=== PATIENT | male | born 1940 | race Caucasian/White ===

== ENCOUNTER 2022-08-21 16:47 | Inpatient (IN) ==
[2022-08-21] MEDS ORDERED: SODIUM CHLORIDE 0.9% 500 ML IV ONE ×2 (17:12→20:16)
[2022-08-21 17:43] LABS: Hematocrit (blood only) 35.6 % (40.1-51.0); Hemoglobin 11.5 g/dl (14.0-18.0); Mean Corpuscular Hemoglobin 30.2 pg (25.0-34.0); Mean Corpuscular Hgb Conc 32.3 g/dL (32.0-36.0); Mean Corpuscular Volume 93.4 fL (80.0-100.0); Mean Platelet Volume 10.2 fL (9.4-12.4); Platelet Count 311 K/uL (130-400); RDW Coefficient of Variation 14.6 % (11.5-14.5); RDW Standard Deviation 50.3 fL (36.4-46.3); Red Blood Count 3.81 M/uL (4.63-6.08); White Blood Count 18.29 K/ul (4.8-10.8)
--- NOTE | 2022-08-21 17:45 | Emergency Department Note ---
Impression & Plan Severe sepsis, Acute pyelonephritis, Gross hematuria, Bilateral hydronephrosis, Acute renal insufficiency, Increased anion gap metabolic acidosis, Elevated lactic acid level ED Provider Note NAME: JUAN JOSE IBARRA AGE: 81 SEX: M ARRIVES VIA: Ambulance INFORMANT: Patient ED PROVIDER(S): Jose Forbes MD CHIEF COMPLAINT: Blood in urine PLAN: Disposition: Admit MEDICAL DECISION MAKING: The patient is a pleasant 81-year-old gentleman with a past medical history of CAD s/p CABG x 4 (2006) with history of MO with new ICM with EF of 45% in May in [place] not amenable to intervention on aspirin and Plavix, history of kidney stone with left ureteral stent placement in June with subsequent removal who presents to the emergency department for evaluation of urinary urgency and concern for retention with development of gross bloody urine last night. He reports he contacted his urologist office and was reassured it was anticipated that the bleeding would eventually subside. The patient reports he has pain in his lower abdomen associate with urgency. He reports he has not urinated since several hours ago. He reports he will feel the need to urinate and nothing will come out and then when he went to sleep he noticed he had saturated pads repeatedly. He denies any fevers, chills, cough congestion, GI symptoms. On arrival patient is no distress, afebrile with blood pressure 220/120s and heart in the 100s in the setting of his discomfort. Temperature is 37.7. The patient has mild suprapubic discomfort without discrete tenderness. There is no significant fullness. Bedside bladder scan demonstrated only 300 cc. WBC 18.2K with left shift. Hemoglobin 11.5 down from 13.8 last month. Chemistry with anion gap metabolic acidosis with anion gap of 18 and bicarbonate of 19. Creatinine 1.7 increased from recent. Lactic acid 5.1 improving to 3.1 following IV fluid hydration which was given cautiously in setting of renal failure and history of CHF. Patient has been ordered for 1 L normal saline bolus and second liter at 125 cc/h. Patient was hemodynamically stable and so 30 cc/kg fluids deferred. Procalcitonin was nonsignificant elevated. Covid-19 PCR negative. Influenza and RSV PCR negative. Given the patient's leukocytosis and acute renal insufficiency CT and pelvis was performed for further evaluation and demonstrates bilateral perinephric edema with moderate left and mild right hydroureter and nephrosis secondary to 99.1 cm blood clot within the urinary bladder lumen. No obstructing calculi are noted. Patient was initially treated empirically with ceftriaxone however given CT findings which given the patient's low-grade temperature and leukocytosis were concerning for superimposed infection and so treatment was broadened with Zosyn and daptomycin. Patient was additionally ordered for three-way catheter and CBI to help relieve intermittent bladder outlet obstruction and help dissolve/clear large bladder clot. The patient was in agreement with this plan and to admission. Case d/w [facility] u[facility]. Agrees with placement of 3 way catheter for CBI and admission. Patient should be n.p.o. after midnight in the event he may need procedure in the morning if CBI is unsuccessful. Case was discussed with Dr. [facility], who will evaluate the patient for admission. Triage Nursing notes reviewed and agree them. Prior medical records reviewed Vital Signs: reviewed Differential diagnosis: Renal colic, UTI, appendicitis, diverticulitis, mesenteric ischemia, aortic pathology, infections, inflammatory bowel disease, PUD, biliary pathology, as well as other pathologies. ER treatment provided: See below. Diagnostics interpreted by me: ECG: Sinus tachycardia, 105 bpm, no ectopy, nonspecific abnormality, no overt ST elevation or depression, QTC 46 QRS. 98. Cardiac Monitoring: An order for continuous cardiac monitoring was placed and demonstrated Sinus tachycardia, 105 bpm, no ectopy. Laboratory studies: See below Imaging studies: See below Consultation(s): [facility] Bearden urology Dr. Peter [facility] HPI: The patient is a pleasant 81-year-old gentleman with a past medical history of CAD s/p CABG x 4 (2006) with history of MO with new ICM with EF of 45% in May in [place] not amenable to intervention on aspirin and Plavix, history of kidney stone with left ureteral stent placement in June with subsequent removal who presents to the emergency department for evaluation of urinary urgency and concern for retention with development of gross bloody urine last night. He reports he contacted his urologist office and was reassured it was anticipated that the bleeding would eventually subside. The patient reports he has pain in his lower abdomen associate with urgency. He reports he has not urinated since several hours ago. He reports he will feel the need to urinate and nothing will come out and then when he went to sleep he noticed he had saturated pads repeatedly. He denies any fevers, chills, cough congestion, GI symptoms. ROS: See above HPI for pertinent positives & negatives. A total of 10 systems reviewed and were otherwise negative. VITALS:See Below PHYSICAL EXAMINATION: GENERAL: Awake, alert, uncomfortable-appearing, in no distress HENT: Normocephalic, atraumatic. Oropharynx with dry mucous membranes and otherwise unremarkable. EYES: Normal conjunctiva. Sclera non-icteric. NECK: Supple. No nuchal rigidity. FROM. No JVD. RESPIRATORY: Clear to auscultation. CARDIAC: Regular rate, normal rhythm. Extremities warm and well perfused. Pulses equal. ABDOMEN: Soft, non-distended. Mild suprapubic discomfort without discrete tenderness. There is no significant fullness. Bedside bladder scan demonstrated only 300 cc. No rebound or guarding. RECTAL: Deferred. MUSCULOSKELETAL: Chest examination reveals no tenderness. The back is symmetrical on inspection without obvious abnormality. There is no CVA tenderness to palpation. No joint edema. LOWER EXTREMITIES: Calves are equal size bilaterally and non-tender. No edema. No discoloration. NEURO: Normal sensorium. No sensory or motor deficits noted. SKIN: No rash or jaundice noted. ED COURSE: Critical Care: I have personally spent greater than 65 minutes of critical care time in the direct management of this patient. This includes bedside care, interpretation of diagnostic studies, and testing, discussion with consultants, patient, and family members, and other required patient management activities. This 65 minutes is in excess of all separately billable procedures. Jose Forbes MD Past Med/Surg History Medical History Arthritis CAD (coronary artery disease) S/p CABG 2006 (four vessel) (HOPKINS-LAD; SVG-OM; SVG to ramus intermedius; SVG to left posterolateral) NSTEMI 06/07/22 Carotid arterial disease Less than 40% plaque bilaterally per cardio Diabetes mellitus, type 2 History of prostate cancer Hx of gout Hyperlipidemia Hypertension Ischemic cardiomyopathy Mild per cardio records. EF 45% Kidney stones Myocardial Infarction "MULTIPLE MO'S" MOST RECENT NSTEMI 06/07/22 WHILE IN [place]- RECOMMENDED MEDICATION MANAGMENET WITH PLAVIX AND IMDUR Surgical History History of cardiac cath MULTIPLE HEART CATH>LAST DONE 06/06/22 IN [place] History of cataract surgery RT/LEFT History of colonoscopy History of coronary artery bypass graft 2007 4 VESSELS IN [facility]>FOLLOWS WITH DR. GORDILLO History of esophagogastroduodenoscopy (EGD) History of prostatectomy History of tonsillectomy and adenoidectomy History of tooth extraction S/P trigger finger release Family History Other No family history of adverse response to anesthesia Social History Smoking Status: Never smoker Second Hand Exposure: Yes ( A CHILD); Hx Alcohol Use: Yes Alcohol type: beer, wine and hard liquor Preferred Language: Tristanian [employer] Required: No Beliefs That Will Affect Care: None Current Living Situation: Spouse Feels Safe at Home: Yes Assistive Devices: Glasses Allergies Allergies Allergy/AdvReac Type Severity Reaction Status Date / Time bacitracin Allergy Intermediate hives Verified 08/21/22 19:14 neomycin Allergy Intermediate hives Verified 08/21/22 19:14 polymyxin B Allergy Intermediate hives Verified 08/21/22 19:14 procaine Allergy Mild SLIGHT Verified 08/21/22 19:14 LETHARGY Home Meds Home Medications Medication Instructions Recorded Confirmed aspirin 81 mg tablet,delayed 81 mg PO DAILY 07/02/22 08/21/22 release cholecalciferol (vitamin D3) 25 1,000 mcg PO DAILY 07/02/22 08/21/22 mcg (1,000 unit) capsule (Vitamin D3) clopidogrel 75 mg tablet (Plavix) 75 mg PO DAILY 07/02/22 08/21/22 cyanocobalamin (vitamin B-12) 1,000 mcg PO DAILY 07/02/22 08/21/22 1,000 mcg tablet (Vitamin B-12) insulin glargine 100 unit/mL (3 12 unit subcut PM 07/02/22 08/21/22 mL) subcutaneous pen (Lantus Solostar U-100 Insulin) metformin 1,000 mg tablet 1,000 mg PO BID 07/02/22 08/21/22 metoprolol succinate 50 mg 50 mg PO QAM 07/02/22 08/21/22 tablet,extended release 24 hr nitroglycerin 0.4 mg sublingual 0.4 mg sublingual DIRECTED PRN 07/02/22 08/21/22 tablet (Nitrostat) Chest Pain rosuvastatin 5 mg sprinkle capsule 5 mg PO QAM 07/02/22 08/21/22 glimepiride 2 mg tablet 2 mg PO DAILY 08/05/22 08/21/22 isosorbide mononitrate 30 mg 30 mg PO QAM 08/21/22 08/21/22 tablet,extended release 24 hr Previous Rx's Medication Instructions Recorded ondansetron 4 mg disintegrating 4 mg PO Q4H PRN nausea and 07/02/22 tablet vomiting #8 tabs ciprofloxacin HCl 500 mg tablet 500 mg PO BID #10 tabs 08/21/22 (Cipro) Results & Data (ED) Vital Signs Vital Signs - 24 hr 08/21/22 16:55 08/21/22 18:31 08/21/22 19:31 Temperature 37.7 C H Temperature Source Oral Pulse Rate 101 H Pulse Rate [Right Finger] 95 H Respiratory Rate 18 Respiratory Effort / Characteristics Non-Labored Respiratory Depth Normal Respiratory Pattern Regular Blood Pressure 229/127 H Blood Pressure [Right Arm] 233/119 H 215/111 H Blood Pressure Mean 161 Blood Pressure Mean [Right Arm] 157 145 Blood Pressure Position Lying Pulse Oximetry 97 Oxygen Delivery Method Room Air Sepsis Recent Fever Within 48 Hours No Sepsis New/Unexplained Change in Mental Status N/A Sepsis Action Taken by Nursing No Action Required Laboratory Data Attestation: I reviewed the patient's lab results. Result diagrams: 08/21/22 16:56 08/21/22 16:56 Lab Results 08/21/22 08/21/22 08/21/22 Range/Units 16:56 16:56 16:56 WBC 18.29 H (4.8-10.8) K/ul RBC 3.81 L (4.63-6.08) M/uL Hgb 11.5 L (14.0-18.0) g/dl Hct 35.6 L (40.1-51.0) % MCV 93.4 (80.0-100.0) fL MCH 30.2 (25.0-34.0) pg MCHC 32.3 (32.0-36.0) g/dL RDW Std Deviation 50.3 H (36.4-46.3) fL RDW Coeff of Aung 14.6 H (11.5-14.5) % Plt Count 311 (130-400) K/uL MPV 10.2 (9.4-12.4) fL Immature Gran % (Auto) 0.5 % Neut % (Auto) 91.2 % Lymph % (Auto) 3.8 % [place] % (Auto) 4.4 % Eos % (Auto) 0.0 % Baso % (Auto) 0.1 % Neut # (Auto) 16.68 H (1.4-6.5) K/uL Lymph # (Auto) 0.69 L (1.2-3.4) K/uL [place] # (Auto) 0.81 (0.24-0.82) K/uL Eos # (Auto) 0.00 (0-0.50) K/uL Baso # (Auto) 0.02 (0-0.2) K/uL Immature Gran # (Auto) 0.09 H (0.00-0.02) K/uL PT 11.9 (9.0-12.0) Seconds INR 1.1 (0.9-1.1) Sodium 135 L (136-145) mmol/L Potassium 4.0 (3.5-5.1) mmol/L Chloride 98 (98-107) mmol/L Carbon Dioxide 19 L (21-32) mmol/L Anion Gap 18 H (3-11) BUN 22 (6-23) mg/dl Creatinine 1.72 H (0.6-1.4) mg/dl Est Cr Clr Drug Dosing 34.2 ml/min Est GFR ( Amer) 42.0 ml/min Est GFR (Non-Af Amer) 36.2 ml/min BUN/Creatinine Ratio 12.8 (10-20) Glucose 387 H* (70-99(Fasting)) mg/dl Calcium 8.9 (8.5-10.1) mg/dl Procalcitonin (0-0.5) ng/ml 08/21/22 Range/Units 16:56 WBC (4.8-10.8) K/ul RBC (4.63-6.08) M/uL Hgb (14.0-18.0) g/dl Hct (40.1-51.0) % MCV (80.0-100.0) fL MCH (25.0-34.0) pg MCHC (32.0-36.0) g/dL RDW Std Deviation (36.4-46.3) fL RDW Coeff of Aung (11.5-14.5) % Plt Count (130-400) K/uL MPV (9.4-12.4) fL Immature Gran % (Auto) % Neut % (Auto) % Lymph % (Auto) % [place] % (Auto) % Eos % (Auto) % Baso % (Auto) % Neut # (Auto) (1.4-6.5) K/uL Lymph # (Auto) (1.2-3.4) K/uL [place] # (Auto) (0.24-0.82) K/uL Eos # (Auto) (0-0.50) K/uL Baso # (Auto) (0-0.2) K/uL Immature Gran # (Auto) (0.00-0.02) K/uL PT (9.0-12.0) Seconds INR (0.9-1.1) Sodium (136-145) mmol/L Potassium (3.5-5.1) mmol/L Chloride (98-107) mmol/L Carbon Dioxide (21-32) mmol/L Anion Gap (3-11) BUN (6-23) mg/dl Creatinine (0.6-1.4) mg/dl Est Cr Clr Drug Dosing ml/min Est GFR ( Amer) ml/min Est GFR (Non-Af Amer) ml/min BUN/Creatinine Ratio (10-20) Glucose (70-99(Fasting)) mg/dl Calcium (8.5-10.1) mg/dl Procalcitonin 0.05 (0-0.5) ng/ml Administered Medications Sodium Chloride (Nss 1000ml) 1,000 mls @ 65 mls/hr IV .[id number] [facility] Stop: 08/23/22 04:01 Last Admin: 08/21/22 23:57 Dose: 65 mls/hr Documented By: MED Piperacillin Sod/Tazobactam (Sod 3.375 gm/ Dextrose) 115 mls @ 28.75 mls/hr IV Q8H MAG; Protocol Stop: 09/01/22 00:59 Last Admin: 08/22/22 00:47 Dose: 28.8 mls/hr Documented By: TONY Insulin Aspart (Insulin Aspart Per Unit) 0 units SC ACHS [facility] Stop: 09/21/22 01:29 Last Admin: 08/22/22 02:20 Dose: 5 units Documented By: TONY Co-signed By: HARSHA Insulin Glargine (Lantus Per Unit Charge) 6 units SQ BID [facility] Stop: 09/21/22 01:21 Last Admin: 08/22/22 02:20 Dose: 6 units Documented By: TONY Co-signed By: HARSHA Discontinued Medications Sodium Chloride (Nss) 500 mls @ 999 mls/hr IV .Q31M ONE Stop: 08/21/22 17:42 Last Infusion: 08/21/22 18:00 Dose: 0 mls/hr Documented By: Admin: 08/21/22 17:29 Dose: 999 mls/hr Documented By: LEANDRO Ceftriaxone Sodium (Rocephin) 2,000 mg in 70 mls @ 140 mls/hr IV NOW STA Stop: 08/21/22 18:30 Last Infusion: 08/21/22 18:53 Dose: 0 mls/hr Documented By: Admin: 08/21/22 18:23 Dose: 140 mls/hr Documented By: LEANDRO Sodium Chloride (Nss 1000ml) 1,000 mls @ 125 mls/hr IV .Q8H [facility] Stop: 09/20/22 20:29 Last Admin: 08/21/22 22:09 Dose: Not Given Documented By: LEANDRO Sodium Chloride (Nss) 500 mls @ 999 mls/hr IV .Q31M ONE Stop: 08/21/22 20:46 Last Infusion: 08/21/22 21:29 Dose: 0 mls/hr Documented By: Admin: 08/21/22 20:44 Dose: 999 mls/hr Documented By: LEANDRO Piperacillin Sod/Tazobactam Sod (Zosyn) 4.5 gm in 120 mls @ 240 mls/hr IV NOW ONE Stop: 08/21/22 20:45 Last Infusion: 08/21/22 21:29 Dose: 0 mls/hr Documented By: Admin: 08/21/22 20:44 Dose: 240 mls/hr Documented By: LEANDRO Daptomycin 450 mg/ Syringe 9 mls @ 4.5 mls/min IV NOW STA; Protocol Stop: 08/21/22 20:17 Last Admin: 08/21/22 21:34 Dose: 4.5 mls/min Documented By: LEANDRO Lidocaine HCl (Lidocaine 2% Jelly 5 Ml Tube) Confirm Administered Dose 5 ml EXT .STK-MED ONE Stop: 08/21/22 20:20 Last Admin: 08/21/22 20:33 Dose: 5 ml Documented By: LEANDRO Tamsulosin HCl (Tamsulosin Hcl 0.4 Mg Cap) 0.4 mg PO NOW ONE Stop: 08/21/22 18:00 Last Admin: 08/21/22 18:23 Dose: 0.4 mg Documented By: LEANDRO Imaging Data Radiologist's Impression: Abdomen/Pelvis CT 08/21/22 18:[address] WITHOUT CONTRAST CT DOSE: 566.38 mGy.cm HISTORY: Acute hematuria and a patient with history of kidney stones gross hematuria, leukocytosis, h/o kidney stones TECHNIQUE: Multiaxial CT images of the abdomen and pelvis were performed without contrast. A dose lowering technique was utilized adhering to the principles of ALARA. COMPARISON STUDY: 07/02/2022 FINDINGS: Prior median sternotomy. Extensive [place] coronary artery calcifications. Bibasilar atelectasis with scarring. No pneumatosis or pneumoperitoneum. The unenhanced pancreas and adrenal glands are unremarkable. Cholelithiasis without CT evidence of acute cholecystitis. The liver is within normal limits. Moderate generalized pancreatic atrophy. Unchanged 1.8 cm cystic lesion of the pancreatic body. No pancreatic ductal dilation. Moderate bilateral perinephric stranding, progressively worsened on the right compared to the prior study. Moderate left-sided hydroureteronephrosis. There are numerous surgical clips and phleboliths within the pelvis. No definite ureteral calculus identified. The previously noted punctate nonobstructing calculus of the superior pole left kidney is not identified on today's study. There is mild right-sided hydroureteronephrosis without urolith. There is a large clot noted within the urinary bladder lumen measuring up to 9.1 x 5.4 x 8.5 cm. Prior right-sided inguinal hernia repair. Atherosclerosis of the aorta and branch vessels. No lymphadenopathy identified. Small hiatal hernia with fluid-filled distal esophagus. Duodenal diverticulum. Fluid-filled distended stomach. Colonic diverticulosis. Trace free fluid/edema within the pelvis. Moderate colonic diverticulosis. Normal appendix. Tiny fat filled umbilical hernia. Degenerative changes of the spine, pelvis and hips. IMPRESSION: 1. Bilateral perinephric edema with moderate left and mild right hydroureteronephrosis secondary to a 9.1 cm blood clot within the urinary bladder lumen. 2. No ureteral calculi are identified. The previously noted punctate nonobstructing calculi of the superior pole left kidney are not identified. 3. Prostatectomy and cholelithiasis. 4. Colonic diverticulosis. 5. Additional findings as above. ACT 112: Negative or not required by law. The above report was generated using voice recognition software. It may contain grammatical, syntax or spelling errors. Electronically signed by: Sony Guardado M.D. 08/21/2022 7:29 PM Discharge Plan Visit Data Chief Complaint: Hematuria Stated Complaint: HEMATURIA, UNABLE TO VOID ED Provider: Jose Forbes Discharge Problem: Severe sepsis, Acute pyelonephritis, Gross hematuria, Bilateral hydronephrosis, Acute renal insufficiency, Increased anion gap metabolic acidosis, Elevated lactic acid level Discharge Instructions Interventions: ED Discharge Assessment Last Done: 08/22/22 01:21
[2022-08-21 17:58] LABS: INR 1.1 (0.9-1.1); Prothrombin Time 11.9 Seconds (9.0-12.0)
[2022-08-21] MEDS ORDERED: TAMSULOSIN HCL 0.4 MG CAP PO ONE (17:59)
[2022-08-21] MEDS ORDERED: cefTRIAXone SODIUM 2,000 MG/70 ML BAG IV STA (18:01)
[2022-08-21 18:02] LABS: BUN Creatinine Ratio 12.8 (10-20); Calcium 8.9 mg/dl (8.5-10.1); Creatinine Clr Calc Pharmacy 34.2 ml/min; Est GFR (Non-African American) 36.2 ml/min
[2022-08-21 18:36] LABS: Basophils # (auto) 0.02 K/uL (0-0.2); Basophils % (auto) 0.1 %; Immature Granulocytes # (auto) 0.09 K/uL (0.00-0.02); Immature Granulocytes % (auto) 0.5 %; Lymphocytes # (auto) 0.69 K/uL (1.2-3.4); Lymphocytes % (auto) 3.8 %; Monocytes # (auto) 0.81 K/uL (0.24-0.82); Monocytes % (auto) 4.4 %; Neutrophils # (auto) 16.68 K/uL (1.4-6.5); Neutrophils % (auto) 91.2 %
--- NOTE | 2022-08-21 19:31 | CT Scan Report ---
ABDOMEN AND PELVIS CT WITHOUT CONTRAST CT DOSE: 566.38 mGy.cm HISTORY: Acute hematuria and a patient with history of kidney stones gross hematuria, leukocytosis, h/o kidney stones TECHNIQUE: Multiaxial CT images of the abdomen and pelvis were performed without contrast. A dose lo wering technique was utilized adhering to the principles of ALARA. COMPARISON STUDY: 07/02/2022 FINDINGS: Prior median sternotomy. Extensive [place] coronary artery calcifications. Bibasilar atelect asis with scarring. No pneumatosis or pneumoperitoneum. The unenhanced pancreas and adrenal glands ar e unremarkable. Cholelithiasis without CT evidence of acute cholecystitis. The liver is within normal limits. Moderate generalized pancreatic atrophy. Unchanged 1.8 cm cystic lesion of the pancreatic dick dy. No pancreatic ductal dilation. Moderate bilateral perinephric stranding, progressively worsened on the right compared to the prior s tudy. Moderate left-sided hydroureteronephrosis. There are numerous surgical clips and phleboliths wi thin the pelvis. No definite ureteral calculus identified. The previously noted punctate nonobstructi ng calculus of the superior pole left kidney is not identified on today's study. There is mild right- sided hydroureteronephrosis without urolith. There is a large clot noted within the urinary bladder l umen measuring up to 9.1 x 5.4 x 8.5 cm. Prior right-sided inguinal hernia repair. Atherosclerosis of the aorta and branch vessels. No lymphadenopathy identified. Small hiatal hernia with fluid-filled distal esophagus. Duodenal diverticulum. Fluid-filled distended stomach. Colonic diverticulosis. Trace free fluid/edema within the pelvis. Moderate colonic divertic ulosis. Normal appendix. Tiny fat filled umbilical hernia. Degenerative changes of the spine, pelvis and hips. IMPRESSION: 1. Bilateral perinephric edema with moderate left and mild right hydroureteronephrosis secondary to a 9.1 cm blood clot within the urinary bladder lumen. 2. No ureteral calculi are identified. The previously noted punctate nonobstructing calculi of the garcia perior pole left kidney are not identified. 3. Prostatectomy and cholelithiasis. 4. Colonic diverticulosis. 5. Additional findings as above. ACT 112: Negative or not required by law. The above report was generated using voice recognition software. It may contain grammatical, syntax o r spelling errors. Electronically signed by: Sony Guardado M.D. 08/21/2022 7:29 PM
[2022-08-21] MEDS ORDERED: DAPTOmycin 450 MG in SYRINGE 0 ML IV STA (20:16)
[2022-08-21] MEDS ORDERED: PIPERACILLIN/TAZOBACTAM 4.5 GM/120 ML BAG IV ONE (20:16)
[2022-08-21] MEDS ORDERED: LIDOCAINE 2% JELLY 5 ML TUBE EXT ONE (20:19)
[2022-08-21] MEDS ORDERED: SODIUM CHLORIDE 0.9% 1000ML 1,000 ML IV SCH (20:30)
[2022-08-21] MEDS ORDERED: MoRPHine SULFATE 2 MG/ML CARP IV PRN (21:09)
[2022-08-21] MEDS ORDERED: MAGNESIUM HYDROXIDE SUSP 30 ML UDC PO PRN (21:09)
[2022-08-21] MEDS ORDERED: ACETAMINOPHEN 325 MG TAB PO PRN (21:09)
[2022-08-21] MEDS ORDERED: NITROGLYCERIN SL 0.4 MG/TAB TAB SL PRN (21:09)
[2022-08-21] MEDS ORDERED: ONDANSETRON INJ 2 MG/ML 2 ML VIAL IV PRN (21:09)
[2022-08-21] MEDS ORDERED: ALUMINUM/MAGNESIUM SUSP 30 ML UDC PO PRN (21:09)
[2022-08-21] MEDS ORDERED: PIPERACILLIN/TAZOBACTAM 4.5 GM in DEXTROSE 5% 100 ML IV SCH (21:15)
[2022-08-21] MEDS ORDERED: LABETALOL HCL IV 5 MG/ML 20ML IV PRN (21:16)
[2022-08-21] MEDS ORDERED: hydrALAZINE HCL 20 MG/ML VIAL IV PRN (21:16)
[2022-08-21 22:57] LABS: Influenza A virus by PCR Negative (Neg); Influenza B virus by PCR Negative (Neg); RSV by PCR Negative (Neg); SARS CoV2 RNA(COVID-19) Ceph NEGATIVE (Negative)
[2022-08-21] MEDS ORDERED: MELATONIN 3 MG TAB PO PRN (23:21)
--- NOTE | 2022-08-21 23:26 | History & Physical Report ---
Date of Service August 21, 2022 Assessment & Plan (1) Severe sepsis: Plan Complicated UTI Concern for developing pyelonephritis Severe sepsis POA: WBC elevated, lactic acid 5.1, pulse rate elevated Patient comes in with pain and burning with passing urine and hematuria Recent history of urologic procedure for left renal stone Admitting WBC elevated, patient afebrile, lactic acid elevated Admitting CTAP with bilateral perinephric edema with moderate left and mild right hydroureteronephrosis secondary to a 9.1 cm blood clot within the urinary bladder lumen Patient is status post Zosyn and 1 L IV fluid in the ED IV fluid, continue with Zosyn, urology consult, follow-up blood culture and urine analysis/culture Follow H&H, trend lactic acid until normal. Diet until midnight, n.p.o. midnight until evaluated by urology in AM. Will continue aspirin and Plavix with close monitoring of H&H given recent cardiac event in May of this year. Hypertensive urgency: As needed IV blood pressure medication, continue with patient's home blood pressure medication. Acute kidney injury: Admitting creatinine of 1.72, baseline around 1. Continue with IV fluid. BMP in AM. DVT prophylaxis: SCDs, hematuria Full code History of Present Illness Chief Complaint: Hematuria followed by inability to pass urine Primary Care Provider: Trisha Andrade MD 81-year-old male with PMH of T2DM, HDL, CAD status post CABG x4 [around 15 years ago per patient], " mini RI" per patient this May [patient followed with hospital in [place]] and patient was discharged on aspirin and Plavix after heart cath, prostate cancer, MDD presented to our ED 08/21 with complaint of hematuria followed by inability to pass urine. Per patient, he had urological procedure for left renal stone almost more than month ago and stent was removed around 1 month ago, and he has been doing fine until yesterday evening when he started noticing blood in the urine associated with pain and burning while passing urine. Per patient he denies any fever. He reported improvement in his color of the urine by morning but he was not able to pass any urine since after 11 AM this morning. Hence he presented to the hospital. Patient denies any headache or fever or chest pain or cough or upper belly pain or acute changes in his bowel habits. Patient reports low belly pain and pain and burning while passing urine and blood in urine. Medications were reviewed with the patient: Patient takes Plavix daily and aspirin every other day. Patient denies use of tobacco, occasionally drinks alcohol, denies use of recreational drugs. Full code [ANGELA Bennett per patient] Family historymother at age 70 and father at age 62. Allergies Allergy/AdvReac Type Severity Reaction Status Date / Time bacitracin Allergy Intermediate hives Verified 08/21/22 19:14 neomycin Allergy Intermediate hives Verified 08/21/22 19:14 polymyxin B Allergy Intermediate hives Verified 08/21/22 19:14 procaine Allergy Mild SLIGHT Verified 08/21/22 19:14 LETHARGY Home Medications Medication Instructions Recorded Confirmed Type aspirin 81 mg tablet,delayed 81 mg PO DAILY 07/02/22 08/21/22 History release cholecalciferol (vitamin D3) 25 1,000 mcg PO DAILY 07/02/22 08/21/22 History mcg (1,000 unit) capsule (Vitamin D3) clopidogrel 75 mg tablet (Plavix) 75 mg PO DAILY 07/02/22 08/21/22 History cyanocobalamin (vitamin B-12) 1,000 mcg PO DAILY 07/02/22 08/21/22 History 1,000 mcg tablet (Vitamin B-12) insulin glargine 100 unit/mL (3 12 unit subcut PM 07/02/22 08/21/22 History mL) subcutaneous pen (Lantus Solostar U-100 Insulin) metformin 1,000 mg tablet 1,000 mg PO BID 07/02/22 08/21/22 History metoprolol succinate 50 mg 50 mg PO QAM 07/02/22 08/21/22 History tablet,extended release 24 hr nitroglycerin 0.4 mg sublingual 0.4 mg sublingual DIRECTED PRN 07/02/22 08/21/22 History tablet (Nitrostat) Chest Pain ondansetron 4 mg disintegrating 4 mg PO Q4H PRN nausea and 07/02/22 08/21/22 Rx tablet vomiting #8 tabs rosuvastatin 5 mg sprinkle capsule 5 mg PO QAM 07/02/22 08/21/22 History glimepiride 2 mg tablet 2 mg PO DAILY 08/05/22 08/21/22 History ciprofloxacin HCl 500 mg tablet 500 mg PO BID #10 tabs 08/21/22 08/21/22 Rx (Cipro) isosorbide mononitrate 30 mg 30 mg PO QAM 08/21/22 08/21/22 History tablet,extended release 24 hr Past Med/Surg History Medical History Arthritis CAD (coronary artery disease) Carotid arterial disease Diabetes mellitus, type 2 History of prostate cancer Hx of gout Hyperlipidemia Hypertension Ischemic cardiomyopathy Kidney stones Myocardial Infarction Surgical History (Updated 08/05/22 @ 10:52 by Suleman Hernandez MD) History of cardiac cath MULTIPLE HEART CATH>LAST DONE 06/06/22 IN [place] History of cataract surgery RT/LEFT History of colonoscopy History of coronary artery bypass graft 2007 4 VESSELS IN [facility]>FOLLOWS WITH DR. GORDILLO History of esophagogastroduodenoscopy (EGD) History of prostatectomy History of tonsillectomy and adenoidectomy History of tooth extraction S/P trigger finger release Family History Other No family history of adverse response to anesthesia Social History Smoking Status: Never smoker Second Hand Exposure: Yes ( A CHILD); Hx Alcohol Use: Yes Alcohol type: beer, wine and hard liquor Preferred Language: Mongolian Diamond Die Maker Required: No Beliefs That Will Affect Care: None Current Living Situation: Spouse Feels Safe at Home: Yes Assistive Devices: Glasses Review of Systems Review of Systems: Negative otherwise mentioned in HPI. Physical Exam Physical Exam: GENERAL: Alert and oriented x3. NAD, on RA. HEENT: No pallor, no icterus. Pupils equal, round and reactive to light. Oral mucosa moist. NECK: No JVD, no neck masses. Chest: healed mid sternotomy scar. HEART: S1 and S2 heard. Regular rate and rhythm. No murmur, no gallop. RESPIRATORY SYSTEM: Normal AP diameter. No accessory muscle use. No wheezing, no crackles. ABDOMEN: Soft, bowel sounds present, mild tenderness lower belly, no distention. CENTRAL NERVOUS SYSTEM: No facial droop. Speech is clear. Obeys simple commands. Moves extremities. EXTREMITIES: No edema, no erythema seen. No CVA angle tenderness Urinary catheter w/ red urine noted in bag. Results & Data Results & Data ([facility]) Vital Signs (Past 12 Hours) Vital Signs Temp Pulse Pulse Resp BP BP Pulse Ox 08/21/22 21:42 90 171/96 H 95 08/21/22 19:31 95 H 215/111 H 08/21/22 18:31 233/119 H 08/21/22 16:55 37.7 C H 101 H 18 229/127 H 97 O2 Del Method 08/21/22 21:42 Room Air 08/21/22 19:31 08/21/22 18:31 08/21/22 16:55 Room Air
[2022-08-21] MEDS: SODIUM CHLORIDE 0.9% 1000ML 1,000 ML IV SCH (23:57)
[2022-08-22] MEDS: PIPERACILLIN/TAZOBACTAM 3.375 GM in DEXTROSE 5% 100 ML IV SCH ×3 (00:47→17:35)
[2022-08-22] MEDS ORDERED: CARBOHYDRATES FOR HYPOGLYCEMIA PO PRN (01:22)
[2022-08-22] MEDS ORDERED: DEXTROSE 50% 50 ML SYRINGE IV PRN (01:22)
[2022-08-22] MEDS ORDERED: GLUCAGON FOR INJ 1 MG VIAL SQ PRN (01:22)
[2022-08-22] MEDS ORDERED: GLUCOSE 40% GEL 15 GM TUBE PO PRN (01:22)
[2022-08-22] MEDS ORDERED: GLUCOSE 10 TAB/TUBE PO PRN (01:22)
[2022-08-22] MEDS: INSULIN ASPART PER UNIT SC SCH ×5 (02:20→21:19)
[2022-08-22] MEDS: LANTUS PER UNIT CHARGE SQ SCH ×3 (02:20→21:20)
[2022-08-22 06:56] LABS: Hematocrit (blood only) 33.7 % (40.1-51.0); Hemoglobin 11.1 g/dl (14.0-18.0); Mean Corpuscular Hemoglobin 30.1 pg (25.0-34.0); Mean Corpuscular Hgb Conc 32.9 g/dL (32.0-36.0); Mean Corpuscular Volume 91.3 fL (80.0-100.0); Platelet Count 252 K/uL (130-400); RDW Coefficient of Variation 14.6 % (11.5-14.5); RDW Standard Deviation 48.8 fL (36.4-46.3); Red Blood Count 3.69 M/uL (4.63-6.08); White Blood Count 10.27 K/ul (4.8-10.8)
[2022-08-22 07:18] LABS: BUN Creatinine Ratio 15.8 (10-20); Calcium 8.8 mg/dl (8.5-10.1); Creatinine Clr Calc Pharmacy 42.3 ml/min; Est GFR (African American) 54.3 ml/min; Est GFR (Non-African American) 46.9 ml/min; Magnesium 1.6 mg/dl (1.7-2.4); Potassium 3.6 mmol/L (3.5-5.1)
[2022-08-22] MEDS: ROSUVASTATIN CALCIUM 5 MG TAB PO SCH (09:53)
[2022-08-22] MEDS: ISOSORBIDE MONO EXTENDED REL 30 MG TABCR PO SCH (09:53)
[2022-08-22] MEDS: CLOPIDOGREL BISULFATE 75 MG TAB PO SCH (09:54)
[2022-08-22] MEDS: CYANOCOBALAMIN (B-12) 500 MCG TABLET PO SCH (09:54)
--- NOTE | 2022-08-22 10:25 | Anesthesiology Consultation ---
Date of Service August 22, 2022 Assessment & Plan (1) Encounter for pre-operative examination: Chart Review Chart Review: Acceptable Risk for Surgery and Patient NOT seen in Pre Admission Testing Consults Requested none History Surgery Operation Date: 08/22/22 09:30 Proposed Procedures p Cystoscopy with Clot Evacuation - Rainer Barba MD Height/Weight Height: 5 ft 10 in Weight: 80.1 kg Allergies Allergy/AdvReac Type Severity Reaction Status Date / Time bacitracin Allergy Intermediate hives Verified 08/21/22 19:14 neomycin Allergy Intermediate hives Verified 08/21/22 19:14 polymyxin B Allergy Intermediate hives Verified 08/21/22 19:14 procaine Allergy Mild SLIGHT Verified 08/21/22 19:14 LETHARGY Medications Home Medications Medication Instructions Recorded Confirmed Last Taken aspirin 81 mg tablet,delayed 81 mg PO DAILY 07/02/22 08/21/22 08/21/22 release cholecalciferol (vitamin D3) 25 1,000 mcg PO DAILY 07/02/22 08/21/22 08/21/22 mcg (1,000 unit) capsule (Vitamin D3) clopidogrel 75 mg tablet (Plavix) 75 mg PO DAILY 07/02/22 08/21/22 08/21/22 cyanocobalamin (vitamin B-12) 1,000 mcg PO DAILY 07/02/22 08/21/22 08/21/22 1,000 mcg tablet (Vitamin B-12) insulin glargine 100 unit/mL (3 12 unit subcut PM 07/02/22 08/21/22 08/20/22 mL) subcutaneous pen (Lantus Solostar U-100 Insulin) metformin 1,000 mg tablet 1,000 mg PO BID 07/02/22 08/21/22 08/21/22 08:00 metoprolol succinate 50 mg 50 mg PO QAM 07/02/22 08/21/22 08/21/22 tablet,extended release 24 hr nitroglycerin 0.4 mg sublingual 0.4 mg sublingual DIRECTED PRN 07/02/22 08/21/22 07/09/22 tablet (Nitrostat) Chest Pain ondansetron 4 mg disintegrating 4 mg PO Q4H PRN nausea and 07/02/22 08/21/22 07/07/22 tablet vomiting #8 tabs rosuvastatin 5 mg sprinkle capsule 5 mg PO QAM 07/02/22 08/21/22 08/21/22 glimepiride 2 mg tablet 2 mg PO DAILY 08/05/22 08/21/22 08/21/22 ciprofloxacin HCl 500 mg tablet 500 mg PO BID #10 tabs 08/21/22 08/21/22 Unknown (Cipro) isosorbide mononitrate 30 mg 30 mg PO QAM 08/21/22 08/21/22 08/21/22 tablet,extended release 24 hr Active Medications Generic Name Dose Route Start Last Admin Trade Name Omidq PRN Reason Stop Dose Admin Clopidogrel Bisulfate 75 mg 08/22/22 09:00 08/22/22 09:54 Clopidogrel Bisulfate 75 Mg Tab PO 09/21/22 08:59 75 mg DAILY MAG Administration Cyanocobalamin 1,000 mcg 08/22/22 09:00 08/22/22 09:54 Cyanocobalamin (B-12) 500 Mcg Tablet PO 09/21/22 08:59 1,000 mcg DAILY MAG Administration Sodium Chloride 1,000 mls @ 65 mls/hr 08/21/22 21:15 08/21/22 23:57 Nss 1000ml IV 08/23/22 04:01 65 mls/hr .[id number] MAG Administration Piperacillin Sod/Tazobactam 115 mls @ 28.75 mls/hr 08/22/22 01:00 08/22/22 09:52 Sod 3.375 gm/ Dextrose IV 09/01/22 00:59 28.8 mls/hr Q8H MAG Administration Protocol Insulin Aspart 0 units 08/22/22 01:30 08/22/22 10:23 Insulin Aspart Per Unit SC 09/21/22 01:29 Not Given ACHS MAG Insulin Glargine 6 units 08/22/22 01:22 08/22/22 10:24 Lantus Per Unit Charge SQ 09/21/22 01:21 Not Given BID MAG Isosorbide Mononitrate 30 mg 08/22/22 09:00 08/22/22 09:53 Isosorbide Addison Extended Rel 30 Mg Tabcr PO 09/21/22 08:59 30 mg QAM MAG Administration Rosuvastatin Calcium 5 mg 08/22/22 09:00 08/22/22 09:53 Rosuvastatin Calcium 5 Mg Tab PO 09/21/22 08:59 5 mg QAM MAG Administration Past Medical History Medical History Arthritis CAD (coronary artery disease) S/p CABG 2006 (four vessel) (HOPKINS-LAD; SVG-OM; SVG to ramus intermedius; SVG to left posterolateral) NSTEMI 06/07/22 Carotid arterial disease Less than 40% plaque bilaterally per cardio Diabetes mellitus, type 2 History of prostate cancer Hx of gout Hyperlipidemia Hypertension Ischemic cardiomyopathy Mild per cardio records. EF 45% Kidney stones Myocardial Infarction "MULTIPLE WV'S" MOST RECENT NSTEMI 06/07/22 WHILE IN [place]- RECOMMENDED MEDICATION MANAGMENET WITH PLAVIX AND IMDUR Past Family History Family History Other No family history of adverse response to anesthesia Past Surgical History Surgical History History of cardiac cath MULTIPLE HEART CATH>LAST DONE 06/06/22 IN [place] History of cataract surgery RT/LEFT History of colonoscopy History of coronary artery bypass graft 2006 4 VESSELS IN [facility]>FOLLOWS WITH DR. GORDILLO History of esophagogastroduodenoscopy (EGD) History of prostatectomy History of tonsillectomy and adenoidectomy History of tooth extraction S/P trigger finger release Social History Smoking Status: Never smoker Hx Alcohol Use: Yes Alcohol type: beer, wine and hard liquor alcohol intake frequency: a few times a month substance use type: does not use Physical Exam Vital Signs Last Vital Signs Temp 99.9 F H 08/21/22 16:55 Pulse 85 08/22/22 03:37 Resp 15 08/22/22 03:37 BP 139/80 08/22/22 03:37 Pulse Ox 97 08/22/22 03:37 O2 Del Method 08/22/22 03:37 Testing Laboratory Results 08/22/22 06:33 08/22/22 06:33 PT 11.9 Seconds (9.0-12.0) 08/21/22 16:56 INR 1.1 (0.9-1.1) 08/21/22 16:56 08/22/22 08/22/22 07:17 02:08 POC Glucose 184 H 348 H* Electrocardiogram Date: 08/21/22 Findings: + NSR @ (tachy)
[2022-08-22] MEDS ORDERED: PROPOFOL IV EMULSION 10 MG/ML 20 ML VIAL IV ONE ×2 (10:32→10:37)
[2022-08-22] MEDS ORDERED: fentaNYL citrate 100 MCG/2 ML VIAL ONE (10:32)
[2022-08-22] MEDS ORDERED: ONDANSETRON INJ 2 MG/ML 2 ML VIAL ONE (10:32)
--- NOTE | 2022-08-22 10:37 | Urology Consultation ---
Date of Consultation August 22, 2022 Assessment & Plan (1) Elevated lactic acid level: (2) Bilateral hydronephrosis: (3) Gross hematuria: 81-year-old male admitted for gross hematuria, clot retention, and suspected urinary tract infection. - Patient afebrile, creatinine and WBC are trending down. - CTAP notable for b/l perinephric edema with moderate left and mild right hydroureteronephrosis secondary to a 9.1 cm blood clot in bladder. - Blood cultures are pending, no UA or urine culture obtained on admission. - Continue broad-spectrum antibiotics and follow cultures. - 3 way Levy intact and draining pink to light ghotra red urine with CBI on slow, no clots noted during my exam. - No manual irrigation has been performed since his arrival. - CBI stopped by urology. Okay to manually irrigate prn clot retention, suprapubic discomfort. Can upsize catheter to 24 F if needed. - Case discussed with Dr. Barba, will proceed with cystoscopy and clot evacuation in OR today. - Keep NPO for procedure. - OR notified. Continue with scheduled Zosyn preoperatively. - Patient agreeable with the plan, all questions answered. - will continue to follow closely. Supervising Physician Co-Signing Physician Notes 81-year-old gentleman with a significant cardiac history who presented to the emergency room yesterday with clot obstruction CT reviewed and discussedhe has a significant amount of clot within the bladder and I recommended cystoscopy and clot evacuation rather than attempt manual irrigation Risks, benefits, expectations reviewed at length Consent is on the chart Plan to move to the OR now History of Present Illness Attending Physician: Ray Singleton MD History of Present Illness This is an 81-year-old gentleman with a past medical history of CAD s/p CABG x 4 (2006) with history of MO, on aspirin and Plavix,prostate cancer s/p prostatectomy, history of kidney stones with recent left ureteroscopy, laser lithotripsy and left ureteral stent placement in June with subsequent removal who presents to the emergency department for evaluation of gross hematuria, urinary urgency and concern for urinary retention. On arrival he was afebrile, hypertensive. Lab work reviewed and notable for lactate of 5.1, leukocytosis 18.29, creatinine 1.72 on arrival. CTAP on adm ission showed bilateral perinephric edema with moderate left and mild right hydroureteronephrosis secondary to a 9.1 cm blood clot within the urinary bladder lumen. Bladder scan reported to be [address] An [address]F [address] Levy catheter was placed and CBI initiated. Blood cultures obtained. ED course included IV Zosyn and 1 L IV fluid. Urology consulted for hematuria, suspected infection. Chart review: Afebrile, lab work - repeat lactate 3.1, creatinine 1.39, WBC 10.27. Blood cultures are pending. He remains on IV Zosyn. Patient seen and examined in the emergency department this morning. He reports feeling better since arrival. He reports developing hematuria with some clots 2 nights ago with associated dysuria and urinary urgency, then developed difficulty voiding and suprapubic pain. No suprapubic or flank pain at present. 3 way Levy intact and draining pink to light ghotra red urine with CBI on slow. No nausea or vomiting. No fever or chills. Patient is NPO. Allergies Allergy/AdvReac Type Severity Reaction Status Date / Time bacitracin Allergy Intermediate hives Verified 08/22/22 10:40 neomycin Allergy Intermediate hives Verified 08/22/22 10:40 polymyxin B Allergy Intermediate hives Verified 08/22/22 10:40 procaine Allergy Mild SLIGHT Verified 08/22/22 10:40 LETHARGY Home Medications Medication Instructions Recorded Confirmed Type aspirin 81 mg tablet,delayed 81 mg PO DAILY 07/02/22 08/21/22 History release cholecalciferol (vitamin D3) 25 1,000 mcg PO DAILY 07/02/22 08/21/22 History mcg (1,000 unit) capsule (Vitamin D3) clopidogrel 75 mg tablet (Plavix) 75 mg PO DAILY 07/02/22 08/21/22 History cyanocobalamin (vitamin B-12) 1,000 mcg PO DAILY 07/02/22 08/21/22 History 1,000 mcg tablet (Vitamin B-12) insulin glargine 100 unit/mL (3 12 unit subcut PM 07/02/22 08/21/22 History mL) subcutaneous pen (Lantus Solostar U-100 Insulin) metformin 1,000 mg tablet 1,000 mg PO BID 07/02/22 08/21/22 History metoprolol succinate 50 mg 50 mg PO QAM 07/02/22 08/21/22 History tablet,extended release 24 hr nitroglycerin 0.4 mg sublingual 0.4 mg sublingual DIRECTED PRN 07/02/22 08/21/22 History tablet (Nitrostat) Chest Pain ondansetron 4 mg disintegrating 4 mg PO Q4H PRN nausea and 07/02/22 08/21/22 Rx tablet vomiting #8 tabs rosuvastatin 5 mg sprinkle capsule 5 mg PO QAM 07/02/22 08/21/22 History glimepiride 2 mg tablet 2 mg PO DAILY 08/05/22 08/21/22 History ciprofloxacin HCl 500 mg tablet 500 mg PO BID #10 tabs 08/21/22 08/21/22 Rx (Cipro) isosorbide mononitrate 30 mg 30 mg PO QAM 08/21/22 08/21/22 History tablet,extended release 24 hr Patient History Medical History Arthritis CAD (coronary artery disease) S/p CABG 2006 (four vessel) (HOPKINS-LAD; SVG-OM; SVG to ramus intermedius; SVG to left posterolateral) NSTEMI 06/07/22 Carotid arterial disease Less than 40% plaque bilaterally per cardio Diabetes mellitus, type 2 History of prostate cancer Hx of gout Hyperlipidemia Hypertension Ischemic cardiomyopathy Mild per cardio records. EF 45% Kidney stones Myocardial Infarction "MULTIPLE MO'S" MOST RECENT NSTEMI 06/07/22 WHILE IN [place]- RECOMMENDED MEDICATION MANAGMENET WITH PLAVIX AND IMDUR Surgical History History of cardiac cath MULTIPLE HEART CATH>LAST DONE 06/06/22 IN [place] History of cataract surgery RT/LEFT History of colonoscopy History of coronary artery bypass graft 2006 4 VESSELS IN [facility]>FOLLOWS WITH DR. 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: No Beliefs That Will Affect Care: None Current Living Situation: Spouse Feels Safe at Home: Yes Assistive Devices: Glasses Review of Systems Review of Systems: All systems reviewed & are unremarkable except as noted in HPI & below Physical Exam Constitutional: well developed and well nourished; no acute distress and not ill appearing Neck: normal visual inspection Respiratory: normal respiratory effort and able to speak in complete sentences; no respiratory distress and no labored breathing Cardiovascular: Extremities: no pedal edema Gastrointestinal (Abdomen): Inspection/Auscultation: abdomen normal to inspection; abdomen not distended Percussion/Palpation: abdomen soft; abdomen nontender and no guarding Musculoskeletal: Head/Neck/Chest: normocephalic and head atraumatic Neurologic: moves all extremities and awake Psychiatric: Orientation: alert and oriented x 3 Genitourinary: no CVA tenderness 3 way Levy intact and draining pink to light ghotra red urine with CBI on slow. Results & Data ([facility]) Vital Signs (Past 12 Hours) Vital Signs Pulse Pulse Resp BP Pulse Ox O2 Del Method 08/22/22 03:37 85 15 139/80 97 Room Air 08/22/22 00:08 92 H 20 149/85 H 97 Room Air PG Care Time/CCT Total # of Minutes Spent Total Time Spent with Patient: Total time spent is greater than 50% in coordination of care (as documented) at patient's floor/unit and/or counseling patient: Coding Level of Care Code 98896 Initial Inpt Care Lvl 2 Diagnoses Elevated lactic acid level R79.89 Bilateral hydronephrosis N13.30 Gross hematuria R31.0
[2022-08-22] MEDS ORDERED: ATROPINE SULFATE 0.1 MG/ML 10ML SYR IV PRN (11:00)
[2022-08-22] MEDS ORDERED: ONDANSETRON INJ 2 MG/ML 2 ML VIAL IV PRN (11:00)
[2022-08-22] MEDS ORDERED: ePHEDrine sulfate 50 MG/ML AMP IV PRN (11:00)
[2022-08-22] MEDS ORDERED: fentaNYL citrate 100 MCG/2 ML VIAL IV PRN (11:00)
--- NOTE | 2022-08-22 12:05 | Operative Report ---
PG Post Operative Report Pre & Post Diagnosis Operation Date: 08/22/22 09:30 Pre-Op Diagnosis: Urinary Retention, Hematuria Post-Op Diagnosis: Urinary Retention, Hematuria I identified the patient and participated in the time-out.: Yes Procedure Operation Date: 08/22/22 09:30 Actual Procedures p Cystoscopy with Clot Evacuation, Fulguration(Not Applicable) - Rainer Barba MD Surgeon Rainer Barba MD Template Checker none Estimated Blood Loss 50 Findings Consistent with Post-Op Diagnosis Specimens none Description of Procedure The patient was identified in the preoperative holding area, appropriate informed consents were reviewed and completed and the patient was transferred to the operative suite. Upon arrival, appropriate antibiotics and anesthesia were administered and the patient was placed in dorsal lithotomy position and prepped and draped in sterile fashion. 3 images to pass 27 British resectoscope with 30 degree lens and visual obturator. Inspection revealed a healthy-appearing urethra he is notably status post prostatectomy. His bladder was difficult to visualize because of the substantial amount of clot. I began to irrigate the clot upon entry into the bladder and I evacuated 600 cc plus. I then inspected the bladder with the resectoscope and identified no active bleeding. There were no tumors or other abnormalities. Ureteral orifices were in orthotopic position. There were several prominent veins around the bladder neck and I utilized a button electrode to cauterize these veins with the hope of preventing recurrent bleeding. After observing for several moments to confirm that there were no active bleeders, I concluded the case and placed a 22 British three-way hematuria catheter and begin very gentle CBI. He was reversed of anesthesia and taken to the recovery room in stable condition there were no complications. I attest to the content of the Intraoperative Record and any orders documented therein. Any exceptions are noted below.
[2022-08-22] MEDS ORDERED: ePHEDrine sulfate 50 MG/ML SYR ONE (12:12)
--- NOTE | 2022-08-22 12:48 | Anesthesiology Progress Note ---
Date of Service August 22, 2022 Anesthesia Post Procedure Vital Signs Vital Signs: Temp Pulse Pulse Pulse Pulse Resp BP 08/22/22 12:35 98.1 F 111 H 18 08/22/22 12:25 107 H 17 08/22/22 12:15 111 H 19 08/22/22 12:06 97.2 F L 109 H 14 08/22/22 10:44 98.4 F 107 H 20 08/22/22 03:37 85 15 08/22/22 00:08 92 H 20 08/21/22 21:42 90 08/21/22 19:31 95 H 08/21/22 18:31 08/21/22 16:55 99.9 F H 101 H 18 229/127 H BP Pulse Ox O2 Del Method O2 Flow Rate 08/22/22 12:35 104/69 98 Room Air 08/22/22 12:25 102/60 100 Oxymask 4 08/22/22 12:15 104/59 L 100 Oxymask 4 08/22/22 12:06 105/61 100 Oxymask 6 08/22/22 10:44 91/60 L 99 Room Air 08/22/22 03:37 139/80 97 Room Air 08/22/22 00:08 149/85 H 97 Room Air 08/21/22 21:42 171/96 H 95 Room Air 08/21/22 19:31 215/111 H 08/21/22 18:31 233/119 H 08/21/22 16:55 97 Room Air Transfer of Care Handoff Completed per policy Notes Mental Status: alert / awake / arousable and participated in evaluation Patient Amnestic to Procedure: Yes Nausea / Vomiting: adequately controlled Pain: adequately controlled Airway Patency, RR, SpO2: stable & adequate BP & HR: stable & adequate Hydration State: stable & adequate Anesthetic Complications: no major complications apparent and Pt Satisfied with anesthetic care
[2022-08-22] MEDS: SODIUM CHLORIDE 0.9% 1000ML 1,000 ML IV SCH (13:59)
[2022-08-22] MEDS ORDERED: ONDANSETRON 4 MG OD TAB PO PRN (14:53)
[2022-08-22] MEDS ORDERED: NITROGLYCERIN SL 0.4 MG/TAB TAB SL PRN (14:53)
--- NOTE | 2022-08-22 17:21 | Electrocardiogram Report ---
Test Reason : Blood Pressure : / mmHG Vent. Rate : 105 BPM Atrial Rate : 105 BPM P-R Int : 178 ms QRS Dur : 098 ms QT Int : 368 ms P-R-T Axes : 039 052 087 degrees QTc Int : 486 ms Sinus tachycardia Nonspecific ST abnormality Abnormal ECG When compared with ECG of 02-JUL-2022 14:07, Nonspecific T wave abnormality now evident in Inferior leads Confirmed by Rainer Mederos ([id number]) on 08/22/2022 5:21:31 PM Referred By: Jaime Barba Confirmed By:Jaime Mederos
--- NOTE | 2022-08-22 22:18 | Hospitalist Progress Note ---
Date of Service August 22, 2022 Assessment & Plan (1) Severe sepsis: Plan Complicated UTI Concern for developing pyelonephritis Severe sepsis POA: WBC elevated, lactic acid 5.1, pulse rate elevated Patient comes in with pain and burning with passing urine and hematuria Recent history of urologic procedure for left renal stone Admitting WBC elevated, patient afebrile, lactic acid elevated Admitting CTAP with bilateral perinephric edema with moderate left and mild right hydroureteronephrosis secondary to a 9.1 cm blood clot within the urinary bladder lumen Patient is status post Zosyn and 1 L IV fluid in the ED IV fluid, continue with Zosyn, urology consult, follow-up blood culture and urine analysis/culture Follow H&H, trend lactic acid until normal. Will continue aspirin and Plavix with close monitoring of H&H given recent cardiac event in May of this year. 08/22 Pt seen by urology and taken for cystoscopy for clot evacuation Currently no hematuria and pt is feeling well Continues on IV zosyn UA ordered on admission but not collected - pending collection blood cultx - pending Hypertensive urgency: As needed IV blood pressure medication, continue with patient's home blood pressure medication. Acute kidney injury: Admitting creatinine of 1.72, baseline around 1. Continue with IV fluid. Monitor renal function DVT prophylaxis: SCDs, hematuria Full code Admission and Anticipated Discharge Date Admission Date: August 21, 2022 Subjective Patient seen in follow-up of hematuria Seen by urology today, and taken for cystoscopy for blood clot evacuation He is currently laying in bed, in no acute distress He is alert oriented answering questions appropriately, conversing easily Denies any fevers chills chest pain shortness of breath Denies any significant abdominal pain Currently draining clear yellow urine, hematuria resolved Continues to be on IV Zosyn UA ordered on admission but not collected - will collect now blood cultx pending Patient is inquiring about possible discharge tomorrow Review of Systems Review of Systems: All systems reviewed & are unremarkable except as noted in Subjective Physical Exam Physical Exam: GENERAL: Alert and oriented x3. NAD, on RA. HEENT: Pu pils equal, round and reactive to li ght. Oral mucosa moist. NECK: No J VD HEART: S1 and S2 heard. Regular rate and rhythm. No murmur, no gal lop. RESPIRATORY: Normal AP diamete r. No accessory m uscle use. No whe ezing, no crackles . ABDOMEN: Soft, bowel sounds prese nt, mild tendernes s lower belly, no distention. : Ur inary catheter w/ clear yellow urine noted in bag. AIME RO: No facial andre op. Speech is ham[place] ar. Obeys simple commands. Moves e xtremities. EXTREM ITIES: No edema, no erythema seen. Results & Data Results & Data ([facility]) Vital Signs (Past 12 Hours) Vital Signs Temp Pulse Pulse Pulse Resp BP Pulse Ox 08/22/22 19:46 37.0 C 109 H 18 104/62 96 08/22/22 15:37 112 H 08/22/22 14:56 08/22/22 14:56 36.9 C 116 H 18 100/64 98 08/22/22 14:20 36.7 C 110 H 24 112/60 96 08/22/22 13:50 111 H 18 92/54 L 97 08/22/22 13:35 109 H 24 103/65 96 08/22/22 13:20 108 H 20 107/67 97 08/22/22 13:05 104 H 15 102/64 96 08/22/22 12:55 108 H 21 107/63 95 08/22/22 12:45 106 H 19 112/63 97 08/22/22 12:35 36.7 C 111 H 18 104/69 98 08/22/22 12:25 107 H 17 102/60 100 08/22/22 12:15 111 H 19 104/59 L 100 08/22/22 12:06 36.2 C L 109 H 14 105/61 100 08/22/22 10:44 36.9 C 107 H 20 91/60 L 99 O2 Del Method O2 Flow Rate 08/22/22 19:46 Room Air 08/22/22 15:37 08/22/22 14:56 Room Air 08/22/22 14:56 Room Air 08/22/22 14:20 Room Air 08/22/22 13:50 Room Air 08/22/22 13:35 Room Air 08/22/22 13:20 Room Air 08/22/22 13:05 Room Air 08/22/22 12:55 Room Air 08/22/22 12:45 Room Air 08/22/22 12:35 Room Air 08/22/22 12:25 Oxymask 4 08/22/22 12:15 Oxymask 4 08/22/22 12:06 Oxymask 6 08/22/22 10:44 Room Air Laboratory Results 08/22/22 08/22/22 08/22/22 Range/Units 20:58 16:37 12:09 WBC (4.8-10.8) K/ul RBC (4.63-6.08) M/uL Hgb (14.0-18.0) g/dl Hct (40.1-51.0) % MCV (80.0-100.0) fL MCH (25.0-34.0) pg MCHC (32.0-36.0) g/dL RDW Std Deviation (36.4-46.3) fL RDW Coeff of Aung (11.5-14.5) % Plt Count (130-400) K/uL MPV (9.4-12.4) fL Sodium (136-145) mmol/L Potassium (3.5-5.1) mmol/L Chloride (98-107) mmol/L Carbon Dioxide (21-32) mmol/L Anion Gap (3-11) BUN (6-23) mg/dl Creatinine (0.6-1.4) mg/dl Est Cr Clr Drug Dosing ml/min Est GFR ( Amer) ml/min Est GFR (Non-Af Amer) ml/min BUN/Creatinine Ratio (10-20) Glucose (70-99(Fasting)) mg/dl POC Glucose 244 H 220 H 207 H (70-99) mg/dl Lactate (0.4-2.0) mmol/L Calcium (8.5-10.1) mg/dl Phosphorus (2.5-4.9) mg/dl Magnesium (1.7-2.4) mg/dl SARS-CoV-2 (PCR) (Negative) Influenza Type A (PCR) (Neg) Influenza Type B (PCR) (Neg) RSV (RT-PCR) (Neg) 08/22/22 08/22/22 08/22/22 Range/Units 10:44 07:17 06:33 WBC (4.8-10.8) K/ul RBC (4.63-6.08) M/uL Hgb (14.0-18.0) g/dl Hct (40.1-51.0) % MCV (80.0-100.0) fL MCH (25.0-34.0) pg MCHC (32.0-36.0) g/dL RDW Std Deviation (36.4-46.3) fL RDW Coeff of Aung (11.5-14.5) % Plt Count (130-400) K/uL MPV (9.4-12.4) fL Sodium 138 (136-145) mmol/L Potassium 3.6 (3.5-5.1) mmol/L Chloride 104 (98-107) mmol/L Carbon Dioxide 27 (21-32) mmol/L Anion Gap 7 (3-11) BUN 22 (6-23) mg/dl Creatinine 1.39 D (0.6-1.4) mg/dl Est Cr Clr Drug Dosing 42.3 ml/min Est GFR ( Amer) 54.3 ml/min Est GFR (Non-Af Amer) 46.9 ml/min BUN/Creatinine Ratio 15.8 (10-20) Glucose 207 H (70-99(Fasting)) mg/dl POC Glucose 227 H 184 H (70-99) mg/dl Lactate (0.4-2.0) mmol/L Calcium 8.8 (8.5-10.1) mg/dl Phosphorus 4.0 (2.5-4.9) mg/dl Magnesium 1.6 L (1.7-2.4) mg/dl SARS-CoV-2 (PCR) (Negative) Influenza Type A (PCR) (Neg) Influenza Type B (PCR) (Neg) RSV (RT-PCR) (Neg) 08/22/22 08/22/22 08/21/22 Range/Units 06:33 02:08 23:51 WBC 10.27 (4.8-10.8) K/ul RBC 3.69 L (4.63-6.08) M/uL Hgb 11.1 L (14.0-18.0) g/dl Hct 33.7 L (40.1-51.0) % MCV 91.3 (80.0-100.0) fL MCH 30.1 (25.0-34.0) pg MCHC 32.9 (32.0-36.0) g/dL RDW Std Deviation 48.8 H (36.4-46.3) fL RDW Coeff of Aung 14.6 H (11.5-14.5) % Plt Count 252 (130-400) K/uL MPV 10.0 (9.4-12.4) fL Sodium (136-145) mmol/L Potassium (3.5-5.1) mmol/L Chloride (98-107) mmol/L Carbon Dioxide (21-32) mmol/L Anion Gap (3-11) BUN (6-23) mg/dl Creatinine (0.6-1.4) mg/dl Est Cr Clr Drug Dosing ml/min Est GFR ( Amer) ml/min Est GFR (Non-Af Amer) ml/min BUN/Creatinine Ratio (10-20) Glucose (70-99(Fasting)) mg/dl POC Glucose 348 H* (70-99) mg/dl Lactate 3.1 H* (0.4-2.0) mmol/L Calcium (8.5-10.1) mg/dl Phosphorus (2.5-4.9) mg/dl Magnesium (1.7-2.4) mg/dl SARS-CoV-2 (PCR) (Negative) Influenza Type A (PCR) (Neg) Influenza Type B (PCR) (Neg) RSV (RT-PCR) (Neg) 08/21/22 Range/Units 22:10 WBC (4.8-10.8) K/ul RBC (4.63-6.08) M/uL Hgb (14.0-18.0) g/dl Hct (40.1-51.0) % MCV (80.0-100.0) fL MCH (25.0-34.0) pg MCHC (32.0-36.0) g/dL RDW Std Deviation (36.4-46.3) fL RDW Coeff of Aung (11.5-14.5) % Plt Count (130-400) K/uL MPV (9.4-12.4) fL Sodium (136-145) mmol/L Potassium (3.5-5.1) mmol/L Chloride (98-107) mmol/L Carbon Dioxide (21-32) mmol/L Anion Gap (3-11) BUN (6-23) mg/dl Creatinine (0.6-1.4) mg/dl Est Cr Clr Drug Dosing ml/min Est GFR ( Amer) ml/min Est GFR (Non-Af Amer) ml/min BUN/Creatinine Ratio (10-20) Glucose (70-99(Fasting)) mg/dl POC Glucose (70-99) mg/dl Lactate (0.4-2.0) mmol/L Calcium (8.5-10.1) mg/dl Phosphorus (2.5-4.9) mg/dl Magnesium (1.7-2.4) mg/dl SARS-CoV-2 (PCR) NEGATIVE (Negative) Influenza Type A (PCR) Negative (Neg) Influenza Type B (PCR) Negative (Neg) RSV (RT-PCR) Negative (Neg) Medications Administered Current Inpatient Medications Acetaminophen (Acetaminophen 325 Mg Tab) 650 mg PO Q4H PRN PRN Reason: Pain or Fever Stop: 09/20/22 21:08 Al Hydrox/Mg Hydrox/Simethicone (Aluminum/Magnesium Susp 30 Ml Udc) 15 ml PO Q4H PRN PRN Reason: Dyspepsia Stop: 09/20/22 21:08 Aspirin (Aspirin 81 Mg Ectab) 81 mg PO Q48H MAG Stop: 09/22/22 08:59 Clopidogrel Bisulfate (Clopidogrel Bisulfate 75 Mg Tab) 75 mg PO DAILY [facility] Stop: 09/21/22 08:59 Last Admin: 08/22/22 09:54 Dose: 75 mg Cyanocobalamin (Cyanocobalamin (B-12) 500 Mcg Tablet) 1,000 mcg PO DAILY [facility] Stop: 09/21/22 08:59 Last Admin: 08/22/22 09:54 Dose: 1,000 mcg Dextrose (Dextrose 50% 50 Ml Syringe) 25 - 50 ml IV UD PRN; Protocol PRN Reason: Hypoglycemia Protocol Stop: 09/21/22 01:21 Glucagon (Glucagon For Inj 1 Mg Vial) 1 mg SQ UD PRN; Protocol PRN Reason: Hypoglycemia Protocol Stop: 09/21/22 01:21 Glucose (Glucose 40% Gel 15 Gm Tube) 15 - 30 gm PO UD PRN; Protocol PRN Reason: Hypoglycemia Protocol Stop: 09/21/22 01:21 Glucose (Glucose 10 Tab/Tube) 4 - 8 tab PO UD PRN; Protocol PRN Reason: Hypoglycemia Treatment Stop: 09/21/22 01:21 Hydralazine HCl (Hydralazine Hcl 20 Mg/Ml Vial) 10 mg IV Q6H PRN PRN Reason: hypertension Stop: 09/20/22 21:29 Sodium Chloride (Nss 1000ml) 1,000 mls @ 65 mls/hr IV .[id number] [facility] Stop: 08/23/22 04:01 Last Admin: 08/22/22 13:59 Dose: 65 mls/hr Piperacillin Sod/Tazobactam (Sod 3.375 gm/ Dextrose) 115 mls @ 28.75 mls/hr IV Q8H [facility]; Protocol Stop: 09/01/22 00:59 Last Infusion: 08/22/22 21:35 Dose: Infused Insulin Aspart (Insulin Aspart Per Unit) 0 units SC ACHS [facility] Stop: 09/21/22 01:29 Last Admin: 08/22/22 21:19 Dose: 2 units Insulin Glargine (Lantus Per Unit Charge) 6 units SQ BID [facility] Stop: 09/21/22 01:21 Last Admin: 08/22/22 21:20 Dose: 6 units Isosorbide Mononitrate (Isosorbide Young Extended Rel 30 Mg Tabcr) 30 mg PO QAM [facility] Stop: 09/21/22 08:59 Last Admin: 08/22/22 09:53 Dose: 30 mg Labetalol HCl (Labetalol Hcl Iv 5 Mg/Ml 20ml) 10 mg IV Q6H PRN PRN Reason: hypertension Stop: 09/20/22 21:15 Magnesium Hydroxide (Magnesium Hydroxide Susp 30 Ml Udc) 30 ml PO Q12H PRN PRN Reason: Constipation Stop: 09/20/22 21:08 Melatonin (Melatonin 3 Mg Tab) 6 mg PO HS PRN PRN Reason: Sleep Stop: 09/20/22 23:20 Metoprolol Succinate (Metoprolol Succ 50mg Ext Rel Tab) [facility] Stop: 09/22/22 08:59 Miscellaneous (Carbohydrates For Hypoglycemia ) 15 - 30 gm PO UD PRN PRN Reason: Hypoglycemia Protocol Stop: 09/21/22 01:21 Morphine Sulfate (Morphine Sulfate 2 Mg/Ml Carp) 1 mg IV Q6H PRN PRN Reason: Severe Pain Stop: 09/04/22 21:08 Nitroglycerin (Nitroglycerin Sl 0.4 Mg/Tab Tab) 0.4 mg SL UD PRN PRN Reason: Chest Pain Stop: 09/20/22 21:08 Ondansetron HCl (Ondansetron Inj 2 Mg/Ml 2 Ml Vial) 4 mg IV Q6H PRN PRN Reason: Nausea Stop: 09/20/22 21:08 Ondansetron HCl (Ondansetron 4 Mg Od Tab) 4 mg PO Q4H PRN PRN Reason: nausea and vomiting Stop: 09/21/22 14:52 Rosuvastatin Calcium (Rosuvastatin Calcium 5 Mg Tab) 5 mg PO QAM [facility] Stop: 09/21/22 08:59 Last Admin: 08/22/22 09:53 Dose: 5 mg Vitamin D (Cholecalciferol 1,000 Units 25 Mcg Tab) 1,000 units PO DAILY [facility] Stop: 09/22/22 08:59
[2022-08-23 00:06] LABS: A calco-baum cmplx NotReported Not Detected (NotDetected); Bact fragilis Not Reported Not Detected (NotDetected); C auris Not Reported Not Detected (NotDetected); Calbicans Not Reported Not Detected (NotDetected); Candida glabrata Not Reported Not Detected (NotDetected); Candida krusei Not Reported Not Detected (NotDetected); Cneoformans/gatti Not Reported Not Detected (NotDetected); Cparapsilosis Not Reported Not Detected (NotDetected); Ctropicalis Not Reported Not Detected (NotDetected); E cloacae compx Not Reported Not Detected (NotDetected); Efaecalis Not Reported Not Detected (NotDetected); Efaecium Not Reported Not Detected (NotDetected); Enterobacterales Not Reported Not Detected (NotDetected); Escherichia coli Not Reported Not Detected (NotDetected); H influenzae Not Reported Not Detected (NotDetected); K aerogenes Not Reported Not Detected (NotDetected); Koxytoca Not Reported Not Detected (NotDetected); Kpneumoniae grp Not Reported Not Detected (NotDetected); Lmonocyt Not Reported Not Detected (NotDetected); N meningitidis Not Reported Not Detected (NotDetected); P aeruginosa Not Reported Not Detected (NotDetected); Proteus spp Not Reported Not Detected (NotDetected); Salmonella spp Not Reported Not Detected (NotDetected); Smarcescens Not Reported Not Detected (NotDetected); Staph lugdunensis Not Reported Not Detected (NotDetected); Staph spp. Not Reported DETECTED (NotDetected); Staphaureus Not Reported Not Detected (NotDetected); Staphepi Not Reported Not Detected (NotDetected); Stenmaltophilia Not Reported Not Detected (NotDetected); Strep agal(GrpB) Not Reported Not Detected (NotDetected); Strep pneum Not Reported Not Detected (NotDetected); Strep pyog (GrpA) Not Reported Not Detected (NotDetected); Strep spp Not Reported Not Detected (NotDetected)
[2022-08-23] MEDS: PIPERACILLIN/TAZOBACTAM 3.375 GM in DEXTROSE 5% 100 ML IV SCH ×3 (00:39→17:46)
[2022-08-23 02:04] LABS: Staphylococcus spp. DETECTED (NotDetected)
--- NOTE | 2022-08-23 08:08 | Urology Progress Note ---
Date of Service August 23, 2022 Assessment & Plan (1) Gross hematuria: Plan: - Pt is POD #1 status post cystoscopy with clot evacuation, fulguration with Dr. Barba. - Doing well, progressing as expected - Afebrile, labs reviewedcreatinine 1.12, WBC 9.51, hemoglobin 9.5 - 1 of 2 blood cultures showing gram positive cocci, repeat cultures obtained today - pending. - No urine culture on admission. He remains on Zosyn - follow cultures. - Levy catheter draining clear urine this am with CBI on slow, clamped at 0750. - Reassessed later in am and draining clear urine with minimal sediment. - Discussed with Dr. Barba, orders placed to discontinue CBI and catheter removal - monitor for void. - Okay to discharge from standpoint with course of antibiotics when patient is medically stable. - will sign off. Admission and Anticipated Discharge Date Admission Date: August 21, 2022 Subjective Patient seen and examined at bedside this am. He is awake and sitting up in bed. No acute issues overnight. Levy intact and draining clear urine with CBI on slow, clamped at 0750, nursing made aware. Denies suprapubic or flank pain. No fever or chills. No nausea or vomiting. Review of Systems Constitutional: as per Subjective / HPI Gastrointestinal: as per Subjective / HPI Genitourinary: + as per Subjective / HPI Physical Exam Constitutional: well developed and well nourished; no acute distress Respiratory: normal respiratory effort; no respiratory distress and no labored breathing Gastrointestinal (Abdomen): Inspection/Auscultation: abdomen normal to inspection; abdomen not distended Psychiatric: Orientation: alert and oriented x 3 Genitourinary: Levy intact and draining clear urine with CBI on slow, clamped at 0750 Results & Data ([facility]) Vital Signs (Past 12 Hours) Vital Signs Temp Pulse Pulse Pulse Resp BP Pulse Ox 08/23/22 07:56 37 C 95 H 18 137/70 96 08/23/22 03:16 36.9 C 101 H 18 121/71 96 08/22/22 23:24 37.1 C 105 H 18 111/56 L 95 08/22/22 22:18 104 H O2 Del Method 08/23/22 07:56 Room Air 08/23/22 03:16 Room Air 08/22/22 23:24 Room Air 08/22/22 22:18 PG Care Time/CCT Total # of Minutes Spent Total Time Spent with Patient: Total time spent is greater than 50% in coordination of care (as documented) at patient's floor/unit and/or counseling patient: Coding Level of Care Code 75808 Subseq Hosp Care Lvl 2 Diagnoses Gross hematuria R31.0
[2022-08-23] MEDS: INSULIN ASPART PER UNIT SC SCH ×4 (08:32→21:17)
[2022-08-23] MEDS: LANTUS PER UNIT CHARGE SQ SCH ×2 (08:33→21:38)
[2022-08-23] MEDS: CYANOCOBALAMIN (B-12) 500 MCG TABLET PO SCH (08:37)
[2022-08-23] MEDS: ISOSORBIDE MONO EXTENDED REL 30 MG TABCR PO SCH (08:37)
[2022-08-23] MEDS: CLOPIDOGREL BISULFATE 75 MG TAB PO SCH (08:37)
[2022-08-23] MEDS: ROSUVASTATIN CALCIUM 5 MG TAB PO SCH (08:38)
[2022-08-23] MEDS: METOPROLOL SUCC 50MG EXT REL TAB PO SCH (08:38)
[2022-08-23] MEDS: CHOLECALCIFEROL 1,000 UNITS 25 MCG TAB PO SCH (08:38)
[2022-08-23] MEDS ORDERED: ASPIRIN 81 MG ECTAB PO SCH (09:00)
[2022-08-23 09:33] LABS: Hematocrit (blood only) 28.6 % (40.1-51.0); Hemoglobin 9.5 g/dl (14.0-18.0); Mean Corpuscular Hemoglobin 29.8 pg (25.0-34.0); Mean Corpuscular Hgb Conc 33.2 g/dL (32.0-36.0); Mean Corpuscular Volume 89.7 fL (80.0-100.0); Mean Platelet Volume 10.2 fL (9.4-12.4); Platelet Count 215 K/uL (130-400); RDW Standard Deviation 49.1 fL (36.4-46.3); Red Blood Count 3.19 M/uL (4.63-6.08); White Blood Count 9.51 K/ul (4.8-10.8)
[2022-08-23 09:55] LABS: BUN Creatinine Ratio 14.3 (10-20); Calcium 8.4 mg/dl (8.5-10.1); Est GFR (African American) 70.5 ml/min; Est GFR (Non-African American) 60.8 ml/min; Potassium 4.2 mmol/L (3.5-5.1)
--- NOTE | 2022-08-23 20:06 | Hospitalist Progress Note ---
Date of Service August 23, 2022 Assessment & Plan (1) Severe sepsis: Plan Gross Hematuria Complicated UTI Concern for developing pyelonephritis Severe sepsis POA Patient comes in with pain and burning with passing urine and hematuria Met sepsis criteria on admission with tachycardia, leukocytosis and elevate lactic acidosis POD #1 status post cystoscopy with clot evacuation, fulguration with Dr. Barba. CT showed bilateral perinephric edema with moderate left and mild right hydroureteronephrosis secondary to a 9.1 cm blood clot within the urinary bladder lumen Blood cx grew gram positive cocci ( could be contamination ) repeat blood cx pending Continue IV Zosyn Hematuria POD #1 status post cystoscopy with clot evacuation, fulguration with Dr. Barba. CT showed b/l perinephric edema with moderate left and mild right hydroureteronephrosis secondary to a 9.1 cm blood clot within the urinary bladder lumen Hgb 9.5 today Continue aspirin and Plavix Continue monitor H/H Hypertensive urgency: As needed IV blood pressure medication, continue with patient's home blood pressure medication. Acute kidney injury: Creatinine of 1.72 on admission, baseline around 1. Received IV fluid Creatinine 1.1 today Continue monitor renal function DVT prophylaxis: SCDs, hematuria Full code Admission and Anticipated Discharge Date Admission Date: August 21, 2022 Subjective Patient seen and examined at bedside for hematuria and urinary retention Lying in bed with no acute distress Levy catheter discontinued Pt said that he is able to void with no difficulty denies any chest pain, palpitation, dizziness and SOB Review of Systems Review of Systems: All systems reviewed & are unremarkable except as noted in Subjective Physical Exam Physical Exam: General- No acute distress Head- atraumatic Eyes- PERRL, EOMI, ENT- oropharynx clear Neck- supple, no JVD Lungs- clear to auscultation Heart- regular rhythm; no murmur Abdomen- normal bowel sounds, soft, nontender Extremities- no calf tenderness Neuro- alert, oriented x 3; PERRL, EOMI; no facial palsy; no dysarthria Skin- warm & dry Results & Data Results & Data ([facility]) Vital Signs (Past 12 Hours) Vital Signs Temp Pulse Resp BP Pulse Ox O2 Del Method 08/23/22 15:55 37.2 C 84 20 115/67 98 Room Air 08/23/22 12:26 36.8 C 102 H 18 120/72 91 Room Air
[2022-08-24] MEDS: PIPERACILLIN/TAZOBACTAM 3.375 GM in DEXTROSE 5% 100 ML IV SCH ×2 (02:58→09:17)
[2022-08-24 06:14] LABS: Hematocrit (blood only) 26.9 % (40.1-51.0); Mean Corpuscular Hemoglobin 29.9 pg (25.0-34.0); Mean Corpuscular Hgb Conc 33.5 g/dL (32.0-36.0); Mean Corpuscular Volume 89.4 fL (80.0-100.0); Mean Platelet Volume 9.9 fL (9.4-12.4); Platelet Count 237 K/uL (130-400); RDW Coefficient of Variation 14.9 % (11.5-14.5); RDW Standard Deviation 48.5 fL (36.4-46.3); Red Blood Count 3.01 M/uL (4.63-6.08); White Blood Count 8.62 K/ul (4.8-10.8)
[2022-08-24] MEDS: ROSUVASTATIN CALCIUM 5 MG TAB PO SCH (09:02)
[2022-08-24] MEDS: CYANOCOBALAMIN (B-12) 500 MCG TABLET PO SCH (09:02)
[2022-08-24] MEDS: METOPROLOL SUCC 50MG EXT REL TAB PO SCH (09:02)
[2022-08-24] MEDS: CHOLECALCIFEROL 1,000 UNITS 25 MCG TAB PO SCH (09:02)
[2022-08-24] MEDS: CLOPIDOGREL BISULFATE 75 MG TAB PO SCH (09:02)
[2022-08-24] MEDS: ISOSORBIDE MONO EXTENDED REL 30 MG TABCR PO SCH (09:02)
[2022-08-24] MEDS: INSULIN ASPART PER UNIT SC SCH ×2 (09:06→12:47)
[2022-08-24] MEDS: LANTUS PER UNIT CHARGE SQ SCH (09:15)
--- NOTE | 2022-08-24 15:28 | Discharge Summary ---
Date of Service August 24, 2022 Admission HPI Per Admitting Provider 81-year-old male with PMH of T2DM, HDL, CAD status post CABG x4 [around 15 years ago per patient], " mini OK" per patient this May [patient followed with hospital in [place]] and patient was discharged on aspirin and Plavix after heart cath, prostate cancer, MDD presented to our ED 08/21 with complaint of hematuria followed by inability to pass urine. Per patient, he had urological procedure for left renal stone almost more than month ago and stent was removed around 1 month ago, and he has been doing fine until yesterday evening when he started noticing blood in the urine associated with pain and burning while passing urine. Per patient he denies any fever. He reported improvement in his color of the urine by morning but he was not able to pass any urine since after 11 AM this morning. Hence he presented to the hospital. Patient denies any headache or fever or chest pain or cough or upper belly pain or acute changes in his bowel habits. Patient reports low belly pain and pain and burning while passing urine and blood in urine. Medications were reviewed with the patient: Patient takes Plavix daily and aspirin every other day. Patient denies use of tobacco, occasionally drinks alcohol, denies use of recreational drugs. Full code [ANGELA Bennett per patient] Family historymother at age 70 and father at age 62. Admission Exam Per Admitting Provider GENERAL: Alert and oriented x3. NAD, on RA. HEENT: No pallor, no icterus. Pupils equal, round and reactive to light. Oral mucosa moist. NECK: No JVD, no neck masses. Chest: healed mid sternotomy scar. HEART: S1 and S2 heard. Regular rate and rhythm. No murmur, no gallop. RESPIRATORY SYSTEM: Normal AP diameter. No accessory muscle use. No wheezing, no crackles. ABDOMEN: Soft, bowel sounds present, mild tenderness lower belly, no distention. CENTRAL NERVOUS SYSTEM: No facial droop. Speech is clear. Obeys simple commands. Moves extremities. EXTREMITIES: No edema, no erythema seen. No CVA angle tenderness Urinary catheter w/ red urine noted in bag. Principal Diagnosis Gross Hematuria Complicated UTI Concern for developing pyelonephritis Severe sepsis Hypertensive urgency Acute kidney injury Discharge Exam General- No acute distress Head- atraumatic Eyes- PERRL, EOMI, ENT- oropharynx clear Neck- supple, no JVD Lungs- clear to auscultation Heart- regular rhythm; no murmur Abdomen- normal bowel sounds, soft, nontender Extremities- no calf tenderness Neuro- alert, oriented x 3; PERRL, EOMI; no facial palsy; no dysarthria Skin- warm & dry Discharge Data Allergies Allergy/AdvReac Type Severity Reaction Status Date / Time bacitracin Allergy Intermediate hives Verified 08/22/22 10:40 neomycin Allergy Intermediate hives Verified 08/22/22 10:40 polymyxin B Allergy Intermediate hives Verified 08/22/22 10:40 procaine Allergy Mild SLIGHT Verified 08/22/22 10:40 LETHARGY Consultations 08/21/22 20:33 ED Decision to Admit Stat 08/21/22 21:09 Consult Urology Routine Procedures Performed Operation Date: 08/22/22 09:30 Actual Procedures p Cystoscopy with Clot Evacuation, Fulguration(Not Applicable) - Rainer Barba MD Ordered Studies 08/21/22 18:23 CT abd pelvis wo con Stat Laboratory Results WBC 8.62 K/ul (4.8-10.8) 08/24/22 05:22 RBC 3.01 M/uL (4.63-6.08) L 08/24/22 05:22 Hgb 9.0 g/dl (14.0-18.0) L 08/24/22 05:22 Hct 26.9 % (40.1-51.0) L 08/24/22 05:22 MCV 89.4 fL (80.0-100.0) 08/24/22 05:22 MCH 29.9 pg (25.0-34.0) 08/24/22 05:22 MCHC 33.5 g/dL (32.0-36.0) 08/24/22 05:22 RDW Std Deviation 48.5 fL (36.4-46.3) H 08/24/22 05:22 RDW Coeff of Aung 14.9 % (11.5-14.5) H 08/24/22 05:22 Plt Count 237 K/uL (130-400) 08/24/22 05:22 MPV 9.9 fL (9.4-12.4) 08/24/22 05:22 Immature Gran % (Auto) 0.5 % 08/21/22 16:56 Neut % (Auto) 91.2 % 08/21/22 16:56 Lymph % (Auto) 3.8 % 08/21/22 16:56 [place] % (Auto) 4.4 % 08/21/22 16:56 Eos % (Auto) 0.0 % 08/21/22 16:56 Baso % (Auto) 0.1 % 08/21/22 16:56 Neut # (Auto) 16.68 K/uL (1.4-6.5) H 08/21/22 16:56 Lymph # (Auto) 0.69 K/uL (1.2-3.4) L 08/21/22 16:56 [place] # (Auto) 0.81 K/uL (0.24-0.82) 08/21/22 16:56 Eos # (Auto) 0.00 K/uL (0-0.50) 08/21/22 16:56 Baso # (Auto) 0.02 K/uL (0-0.2) 08/21/22 16:56 Immature Gran # (Auto) 0.09 K/uL (0.00-0.02) H 08/21/22 16:56 PT 11.9 Seconds (9.0-12.0) 08/21/22 16:56 INR 1.1 (0.9-1.1) 08/21/22 16:56 Sodium 136 mmol/L (136-145) 08/23/22 09:17 Potassium 4.2 mmol/L (3.5-5.1) 08/23/22 09:17 Chloride 104 mmol/L (98-107) 08/23/22 09:17 Carbon Dioxide 26 mmol/L (21-32) 08/23/22 09:17 Anion Gap 6 (3-11) 08/23/22 09:17 BUN 16 mg/dl (6-23) 08/23/22 09:17 Creatinine 1.12 mg/dl (0.6-1.4) 08/23/22 09:17 Est Cr Clr Drug Dosing 59.0 ml/min 08/23/22 09:17 Est GFR ( Amer) 70.5 ml/min 08/23/22 09:17 Est GFR (Non-Af Amer) 60.8 ml/min 08/23/22 09:17 BUN/Creatinine Ratio 14.3 (10-20) 08/23/22 09:17 Glucose 318 mg/dl (70-99(Fasting)) H* 08/23/22 09:17 POC Glucose 208 mg/dl (70-99) H 08/24/22 12:02 Lactate 3.1 mmol/L (0.4-2.0) H* 08/21/22 23:51 Calcium 8.4 mg/dl (8.5-10.1) L 08/23/22 09:17 Phosphorus 4.0 mg/dl (2.5-4.9) 08/22/22 06:33 Magnesium 1.6 mg/dl (1.7-2.4) L 08/22/22 06:33 Procalcitonin 0.05 ng/ml (0-0.5) 08/21/22 16:56 SARS-CoV-2 (PCR) NEGATIVE (Negative) 08/21/22 22:10 Influenza Type A (PCR) Negative (Neg) 08/21/22 22:10 Influenza Type B (PCR) Negative (Neg) 08/21/22 22:10 RSV (RT-PCR) Negative (Neg) 08/21/22 22:10 Staphylococcus sp PCR DETECTED (NotDetected) A 08/22/22 18:18 Bld Cult ID Panel PCR See PCR Comment (NotDetected) 08/22/22 18:18 Impressions Abdomen/Pelvis CT 08/21/22 18:[address] WITHOUT CONTRAST CT DOSE: 566.38 mGy.cm HISTORY: Acute hematuria and a patient with history of kidney stones gross hematuria, leukocytosis, h/o kidney stones TECHNIQUE: Multiaxial CT images of the abdomen and pelvis were performed without contrast. A dose lowering technique was utilized adhering to the principles of ALARA. COMPARISON STUDY: 07/02/2022 FINDINGS: Prior median sternotomy. Extensive [place] coronary artery calcifications. Bibasilar atelectasis with scarring. No pneumatosis or pneumoperitoneum. The unenhanced pancreas and adrenal glands are unremarkable. Cholelithiasis without CT evidence of acute cholecystitis. The liver is within normal limits. Moderate generalized pancreatic atrophy. Unchanged 1.8 cm cystic lesion of the pancreatic body. No pancreatic ductal dilation. Moderate bilateral perinephric stranding, progressively worsened on the right compared to the prior study. Moderate left-sided hydroureteronephrosis. There are numerous surgical clips and phleboliths within the pelvis. No definite ureteral calculus identified. The previously noted punctate nonobstructing calculus of the superior pole left kidney is not identified on today's study. There is mild right-sided hydroureteronephrosis without urolith. There is a large clot noted within the urinary bladder lumen measuring up to 9.1 x 5.4 x 8.5 cm. Prior right-sided inguinal hernia repair. Atherosclerosis of the aorta and branch vessels. No lymphadenopathy identified. Small hiatal hernia with fluid-filled distal esophagus. Duodenal diverticulum. Fluid-filled distended stomach. Colonic diverticulosis. Trace free fluid/edema within the pelvis. Moderate colonic diverticulosis. Normal appendix. Tiny fat filled umbilical hernia. Degenerative changes of the spine, pelvis and hips. IMPRESSION: 1. Bilateral perinephric edema with moderate left and mild right hydroureteronephrosis secondary to a 9.1 cm blood clot within the urinary bladder lumen. 2. No ureteral calculi are identified. The previously noted punctate nonobstructing calculi of the superior pole left kidney are not identified. 3. Prostatectomy and cholelithiasis. 4. Colonic diverticulosis. 5. Additional findings as above. ACT 112: Negative or not required by law. The above report was generated using voice recognition software. It may contain grammatical, syntax or spelling errors. Electronically signed by: Sony Guardado M.D. 08/21/2022 7:29 PM Hospital Course (1) Severe sepsis: Plan Gross Hematuria Complicated UTI Concern for developing pyelonephritis Severe sepsis POA Patient comes in with pain and burning with passing urine and hematuria Met sepsis criteria on admission with tachycardia, leukocytosis and elevate lactic acidosis POD #1 status post cystoscopy with clot evacuation, fulguration with Dr. Barba. CT showed bilateral perinephric edema with moderate left and mild right hydroureteronephrosis secondary to a 9.1 cm blood clot within the urinary bladder lumen Blood cx grew gram positive cocci ( Mostly contamination) repeat blood cx no growth Currently on IV Zosyn, will transition to Cefdinir to complete the course Hematuria POD #2 status post cystoscopy with clot evacuation, fulguration with Dr. Freda. CT showed b/l perinephric edema with moderate left and mild right hydroureteronephrosis secondary to a 9.1 cm blood clot within the urinary bladder lumen Hgb 9 today Continue aspirin and Plavix Check CBC in 1 week to monitor hgb Hypertensive urgency: BP improved Continue blood pressure medication. Continue monitor BP Acute kidney injury: Creatinine of 1.72 on admission, baseline around 1. Received IV fluid Creatinine 1.1 today Continue monitor renal function DVT prophylaxis: SCDs, hematuria Full code Disposition Will discharge home today Total Time Total Time Spent Total Time Spent (In Minutes): 35 minutes Discharge Plan Discharge Items Patient Disposition: Home - Self-Care Reason For Visit: URINARY RETENTION, HEMATURIA, RECENT OK Discharge Diagnosis: Gross Hematuria Complicated UTI Hypertensive urgency Acute kidney injury Activity: Resume your previous activity Non-emergency contact: Primary Care Provider and Urologist Call non-emergency contact if: you have any medication questions, your symptoms worsen and your temperature is above 101 Follow-up/Referrals: Trisha Andrade MD [Primary Care Provider] - Diet: Heart Healthy Addtl Attending Provider Instructions: Follow up with your primary care provider ( please call for the appointment) Follow up with urology if you develop any urinary retention Check CBC in -2 weeks to monitor your hemoglobin Continue monitor for any abnormal bleeding Seek medical attention if you develop any blood in your urine, urinary retention, fever or any other urinary symptoms Complete the course of the antibiotic with cefdinir Pending Studies at Discharge: No Stand-Alone Forms: My [facility] [address] [place], Smoking Cessation Medications and DC Order Prescriptions: New cefdinir 300 mg capsule 300 mg PO BID 4 Days Qty: 8 0RF Continued glimepiride 2 mg tablet 2 mg PO DAILY metoprolol succinate 50 mg Tablet Extended Release 24 Hr 50 mg PO QAM cyanocobalamin (vitamin B-12) [Vitamin B-12] 1,000 mcg Tablet 1,000 mcg PO DAILY clopidogrel [Plavix] 75 mg Tablet 75 mg PO DAILY aspirin 81 mg Tablet,Delayed Release (Dr/Ec) 81 mg PO DAILY metformin 1,000 mg Tablet 1,000 mg PO BID nitroglycerin [Nitrostat] 0.4 mg Tablet, Sublingual 0.4 mg sublingual DIRECTED PRN (Reason: Chest Pain) cholecalciferol (vitamin D3) [Vitamin D3] 25 mcg (1,000 unit) Capsule 1,000 mcg PO DAILY insulin glargine [Lantus Solostar U-100 Insulin] 100 unit/mL (3 mL) Insulin Pen 12 unit SUBCUT PM rosuvastatin 5 mg Capsule, Sprinkle 5 mg PO QAM ondansetron 4 mg tablet,disintegrating 4 mg PO Q4H PRN (Reason: nausea and vomiting) Qty: 8 0RF isosorbide mononitrate 30 mg Tablet Extended Release 24 Hr 30 mg PO QAM Discontinued ciprofloxacin HCl [Cipro] 500 mg tablet 500 mg PO BID Qty: 10 0RF Rx Instructions: ORDERED 08/21/22, CULTURES COLLECTED, ON HOLD FOR RESULTS. Discharge Orders: Discharge Order (Routine); Ordered 08/24/22 Ordered By: Yohan John Admission Data Admit Date/Time: 08/21/22 21:07 Attending Provider: Yohan John Admit Provider: [place] Primary Care Provider: Trisha Andrade Other Providers: [place] ; Rainer Barba ; Ray Singleton
== END 2022-08-24 16:22 | disposition home or self-care (01) | DRG 693 ==
LOC: ED 16:47 → EDINP 21:07 → SUATTDRO 21:07 → EDINP 08-22 12:04 → 4W 08-22 14:51